=== PATIENT | female | born 1965 | race Caucasian/White ===

== ENCOUNTER 2018-06-21 22:24 | Emergency (ER) | payer OTHER, MEDICAID ==
[~2018-06-21] VITALS: Ht 170.2 cm; Wt 60.3 kg
[~2018-06-21 22:24] MED LIST: ABILIFY10 MG; AMOXICILLIN 50500 MG PO; AMOXICILLIN500 M1 PO; FLEXERIL PO; HYDROCODON-ACE1 EAC7 PO; IBUPROFEN 800800 M1 PO; NORCO 5-325 TA1 EAC1 PO; NORCO 5-325 TA1 EACH PO; NORFLEX100 MG PO; PAROXETINE HCL40 MG; PREDNISONE 10 M10 MG PO; PRILOSEC 20 MG20 MG; REMERON15 M1; TRAMADOL 50 MG50 MG PO; XANAX 0.5 MG0.5 M1
[2018-06-22 00:17] VITALS: BP 138/67
== END 2018-06-22 00:18 | disposition home or self-care (01) ==
LOC: M.ERS 22:24
DX: K08.89 Other specified disorders of teeth and supporting structures (principal); R22.0 Localized swelling, mass and lump, head; F32.9 Major depressive disorder, single episode, unspecified; F17.210 Nicotine dependence, cigarettes, uncomplicated; Z90.711 Acquired absence of uterus with remaining cervical stump